=== PATIENT | male | born 1960 | race African-American/Black ===

== ENCOUNTER 2017-05-15 20:38 | Emergency (ER) | payer OTHER ==
[~2017-05-15] VITALS: Ht 193 cm; Wt 107.0 kg
[~2017-05-15 20:38] MED LIST: AMLO5TAB96 PO; EZET10 PO; GABA300C3 PO; NAPR220T95 PO; ROBA750T3 PO; TAB-TAB PO
[2017-05-15 20:41] VITALS: BP 130/70; PULSE 72; RESP 16; TEMP 98.3; O2SAT 97
--- NOTE | 2017-05-15 20:45 | PD ---
Physical Exam Date Seen by Provider: May 15, 2017 Time Seen by Provider: 20:44 Narrative 56 yo male here for evaluation of right lower leg bite. Unknown etiology. Noticed after he took his shoes and socks off today. Pain is 8/10. No history of this. No other complains today. Vitals are stable. Awaiting bed placement. Data Data Last Documented VS Vital Signs Date Time Temp Pulse Resp B/P Pulse Ox O2 Delivery O2 Flow Rate FiO2 05/15/17 20:41 98.3 72 16 130/70 97 Room Air [facility] Medical Record Reviewed: Yes Supervised Visit with LESLIE: No Jeremías Pickett May 15, 2017 20:45
[2017-05-15] MEDS ORDERED: TRIA.1%T TOPICAL (22:20)
--- NOTE | 2017-05-15 22:25 | PD ---
HPI Chief Complaint: Bite or Sting Time Seen by Provider: 22:21 Travel History International Travel<30 days: No Contact w/Intl Traveler<30days: No Traveled to known affect area: No History of Present Illness HPI 56-year-old black male presents emergency department for evaluation of a insect bite. He states that he is working out in the yard earlier today. He states that he felt something bite him underneath his boot. He states that after an gotten home and taking his shoes and socks off he had noted a tender red area underneath his sock. She did not see the organism. Does complain of tenderness and mild pruritus. He is not taking anything for this yet. He has not had any secondary symptoms of other rashes, fever, chills, shortness of breath or glossal edema. PFSH Past Medical History Narrative Medical Chronic neck and back pain, hypercholesterolemia Arthritis: Yes Blood Disorders: No Anxiety: No Depression: No Cancer: No Cardiovascular Problems: No High Cholesterol: Yes Cerebrovascular Accident: No Diabetes: No Diminished Hearing: No Endocrine: No Genitourinary: No Headaches: No Hepatitis: Yes (25 YEARS AGO) Hiatal Hernia: No Hypertension: Yes Immune Disorder: No Musculoskeletal: Yes (LUMBAR PAIN RADIATING INTO LEGS) Neurologic: No Psychiatric: No Reproductive: No Respiratory: No Migraines: No Seizures: No Thyroid Disease: No Tetanus Vaccination: < 5 Years Past Surgical History Narrative Surgical Cervical discectomy and fusion Abdominal Surgery: No AICD: No Body Medical Devices: CERVICAL PLATE AND SCREWS Cardiac Surgery: No Ear Surgery: No Eye Surgery: No Genitourinary Surgery: No Joint Replacement: No Oral Surgery: No Pacemaker: No Thoracic Surgery: No Social History Alcohol Use: No Tobacco Use: No Substance Use: No Allergies-Medications (Allergen,Severity, Reaction): Coded Allergies: Tamiflu (Unverified Allergy, Severe, HIVES, 08/08/15) *MDRO Multi-Drug Resistant Organism (Unverified Adverse Reaction, Unknown , 08/05/15) 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 Reported Meds & Prescriptions Reported Meds & Active Scripts Active Triamcinolone Topical (Triamcinolone Acetonide) 0.1% Cream 1 Applic TOPICAL BID Robaxin-750 (Methocarbamol) 750 Mg Tab 750 Mg PO QID FOR PAIN Norvasc (Amlodipine Besylate) 5 Mg Tab 5 Mg PO DAILY Reported Zetia (Ezetimibe) 10 Mg Tab 10 Mg PO DAILY Multivitamin (Multivitamins) 1 Tab Tab 1 Tab PO DAILY Gabapentin 300 Mg Cap 300 Mg PO HS Aleve (Naproxen Sodium) 220 Mg Tab 4-6 Tab PO BID PRN Review of Systems Except as stated in HPI: all other systems reviewed are Neg Physical Exam Narrative GENERAL: This is a well-nourished, well-developed patient, in no apparent distress. SKIN: There is a 3 x 3 cm area of mild erythema and induration to the lower medial right pretibial area. There is no fluctuance or pointing. No lymphangitic streaking. Mildly tender. Warm and dry. HEAD: Atraumatic. Normocephalic. EYES: PERRL, EOMI, no discharge or injection. No scleral icterus. EARS: Clear NOSE: Nasal turbinates appear normal. THROAT: Mucosa pink and moist. Airway patent. NECK: Trachea midline. supple, moves head freely. LUNGS: Clear to auscultation. CV: Regular in rhythm. ABDOMEN: Soft nontender. EXT: No clubbing cyanosis or edema. Data Data Last Documented VS Vital Signs Date Time Temp Pulse Resp B/P Pulse Ox O2 Delivery O2 Flow Rate FiO2 05/15/17 20:41 98.3 72 16 130/70 97 Room Air Orders Diphenhydramine (Benadryl) (05/15/17 22:30) Prednisone (Deltasone) (05/15/17 22:30) MDM Medical Decision Making Medical Screen Exam Complete: Yes Emergency Medical Condition: Yes Medical Record Reviewed: Yes Differential Diagnosis MDM: High Differential diagnoses: Abscess, folliculitis, cellulitis, lymphangitis, abrasion, contact dermatitis, insect bite Narrative Course Patient has an insect bite local reaction. Patient's given prednisone 60 mg and Benadryl 50 g by mouth. I see no systemic symptoms from the bite. This will be treated symptomatically and locally with topical steroids and Benadryl. Diagnosis Primary Impression: Insect bite of ankle with local reaction Qualified Code: S90.561A - Insect bite of ankle with local reaction, right, initial encounter Patient Instructions: General Instructions Additional Instructions: Rest. Elevation. Ice pack tonight. 50 no evidence of Benadryl every 4-6 hours. Triamcinolone cream. Follow-up with your doctor in the next 3-4 days. Return to the ER for emergencies. Scripts Triamcinolone Topical 0.1% Cream1 Applic TOPICAL BID #30 GM Prov:Christian Tijerina MD 05/15/17 Disposition: 01 DISCHARGE HOME Condition: Stable Juliocesar Ivory May 15, 2017 22:25
[2017-05-15] MEDS ORDERED: predniSONE 20 MG TAB PO ONE (22:30)
[2017-05-15] MEDS ORDERED: diphenhydrAMINE HCL 50 MG CAP PO ONE (22:30)
== END 2017-05-15 22:40 | disposition home or self-care (01) ==
LOC: NEPK 20:38
DX: S90.561A Insect bite (nonvenomous), right ankle, initial encounter (principal); I10 Essential (primary) hypertension; E78.00 Pure hypercholesterolemia, unspecified; M19.90 Unspecified osteoarthritis, unspecified site; Z79.899 Other long term (current) drug therapy; W57.XXXA Bitten or stung by nonvenomous insect and other nonvenomous arthropods, initial encounter
CPT/HCPCS: 99283; J7512; Q0163

== ENCOUNTER 2017-11-27 20:43 | Emergency (ER) | payer OTHER ==
[~2017-11-27] VITALS: Ht 193 cm; Wt 108.2 kg
[~2017-11-27 20:43] MED LIST changes: +TRIA.1%T TOPICAL
[2017-11-27 20:46] VITALS: BP 130/85; PULSE 78; RESP 16; TEMP 98.3; O2SAT 99
--- NOTE | 2017-11-27 21:58 | RADRPT ---
EXAM DATE/TIME: 11/27/2017 21:17 [place] COMPARISON: No previous studies available for comparison. INDICATIONS : Right knee pain, swelling for 2 days with no known injury MEDICAL HISTORY : None. SURGICAL HISTORY : None. ENCOUNTER: Initial ACUITY: 2 days PAIN SCORE: 7/10 LOCATION: Right anterior knee FINDINGS: Four view examination of the right knee demonstrates no evidence of fracture or dislocation. Bony mi neralization is normal. The articular surfaces are intact. The prepatellar soft tissues are swollen . CONCLUSION: 1. No acute bony abnormality. Prepatellar soft tissue swelling or bursitis. Juliocesar Herndon MD on November 27, 2017 at 21:54 Board Certified Radiologist. This report was verified electronically.
[2017-11-27] MEDS ORDERED: LIDOCAINE 1%/EPINEPHrine 1:100,000 SOLN 20 ML VIAL INFIL ONE (22:15)
[2017-11-27] MEDS ORDERED: LIDOCAINE HCL 1% 20 ML VIAL ONE (22:21)
--- NOTE | 2017-11-27 22:38 | PD ---
HPI Chief Complaint: Musculoskeletal Complaint Time Seen by Provider: 21:59 Travel History International Travel<30 days: No Contact w/Intl Traveler<30days: No Traveled to known affect area: No History of Present Illness HPI Patient comes emergency Department complaining of right knee swelling that began 2 days ago. Patient states he awoke with the swelling. Patient reports mild discomfort with this. Reports feeling warmth with it. Patient reports it has become progressively worse. Denies any fevers, history of IV drug use, or previous episodes like this. Denies anything making it better. Walking and trying to nail makes it worse. Denies any radiation of the pain. PFSH Past Medical History Arthritis: Yes Blood Disorders: No Anxiety: No Depression: No Cancer: No Cardiovascular Problems: No High Cholesterol: Yes Cerebrovascular Accident: No Diabetes: No Diminished Hearing: No Endocrine: No Gastrointestinal Disorders: No Genitourinary: No Headaches: No Hepatitis: Yes (25 YEARS AGO) Hiatal Hernia: No Hypertension: Yes Immune Disorder: No Implanted Vascular Access Dvce: Yes Musculoskeletal: Yes (LUMBAR PAIN RADIATING INTO LEGS) Neurologic: No Psychiatric: No Reproductive: No Respiratory: No Migraines: No Seizures: No Thyroid Disease: No Past Surgical History Abdominal Surgery: No AICD: No Body Medical Devices: CERVICAL PLATE AND SCREWS Cardiac Surgery: No Ear Surgery: No Eye Surgery: No Genitourinary Surgery: No Joint Replacement: No Neurologic Surgery: No Oral Surgery: No Pacemaker: No Thoracic Surgery: No Other Surgery: Yes (PLATE IN NECK BY DR. 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 Reported Meds & Prescriptions Reported Meds & Active Scripts Active Triamcinolone Topical (Triamcinolone Acetonide) 0.1% Cream 1 Applic TOPICAL BID Robaxin-750 (Methocarbamol) 750 Mg Tab 750 Mg PO QID FOR PAIN Norvasc (Amlodipine Besylate) 5 Mg Tab 5 Mg PO DAILY Reported Zetia (Ezetimibe) 10 Mg Tab 10 Mg PO DAILY Multivitamin (Multivitamins) 1 Tab Tab 1 Tab PO DAILY Gabapentin 300 Mg Cap 300 Mg PO HS Aleve (Naproxen Sodium) 220 Mg Tab 4-6 Tab PO BID PRN Review of Systems Except as stated in HPI: all other systems reviewed are Neg Physical Exam Narrative GENERAL: Well-developed, well nourished, in no acute distress, and non-ill appearing. SKIN: Focused skin assessment warm and dry. HEAD: Atraumatic. Normocephalic. EYES: Pupils equal and round. EOMI. No scleral icterus. No injection or drainage. ENT: No nasal bleeding or discharge. Mucous membranes pink and moist. NECK: Trachea midline. Supple. No nuclear rigidity. RESPIRATORY: No accessory muscle use. No respiratory distress. MUSCULOSKELETAL: No obvious deformities. No clubbing. No cyanosis. No edema. Full range of motion. Swelling noted over the right prepatellar bursa is tender to palpation. It is mildly febrile. There is no drainage or crepitus. NEUROLOGICAL: Awake and alert. No obvious cranial nerve deficits. Motor grossly within normal limits. Normal speech. PSYCHIATRIC: Appropriate mood and affect; insight and judgment normal. Data Data Last Documented VS Vital Signs Date Time Temp Pulse Resp B/P (MAP) Pulse Ox O2 Delivery O2 Flow Rate FiO2 11/27/17 20:46 98.3 78 16 130/85 (100) 99 Room Air Orders Orders Knee, Complete (4vws) (11/27/17 ) Lidocai-Epi 1%-1:100,000 Inj (Xylocaine- (11/27/17 22:15) Fluid Culture And Gram Stain (11/27/17 22:16) Synovial Fl Cell Count + Diff (11/27/17 22:16) Lidocaine 1% Inj (Xylocaine 1% Inj) (11/27/17 22:21) MDM Medical Decision Making Medical Screen Exam Complete: Yes Emergency Medical Condition: Yes Differential Diagnosis Bursitis, gout, pseudogout, septic arthritis, abscess, cellulitis, fracture Narrative Course Patient was seen and examined. Knee x-ray was reviewed. Discussed patient with Dr. Dumont, who saw and evaluated the patient is in agreement with plan of care. Right knee was tapped. Please see procedure note. Patient was signed out to Dr. Dumont at the end of my shift pending labs. Please see her her documentation for final diagnosis and disposition. Procedures Procedure Narrative Verbal consent was obtained. Area was cleaned and prepped using Betadine. Sterile technique was performed. The area was anesthetized using lidocaine without epi 2 mL was injected. 18-gauge needle was inserted ventricular to the knee into the prepatellar bursa. 5 cc of fluid was drained. Sterile dressing was applied. Patient tolerated procedure well. There is no complications. Elliott Rubin Nov 27, 2017 22:38
[2017-11-28] MEDS ORDERED: NABU1TAB37 PO (00:25)
--- NOTE | 2017-11-28 00:28 | PD ---
Physical Exam Date Seen by Provider: Nov 28, 2017 Narrative This patient was seen along with CARLOS EDUARDO Mcdonald with an apparent right prepatellar bursitis. Sai drain the bursitis for the purpose of obtaining samples for Gram stain, culture and cell count. We have been waiting for the results of this for a couple hours now. The patient has grown in patient and has decided to leave AMA. The risks of leaving AMA were explained to the patient. Data Data Last Documented VS Vital Signs Date Time Temp Pulse Resp B/P (MAP) Pulse Ox O2 Delivery O2 Flow Rate FiO2 11/27/17 20:46 98.3 78 16 130/85 (100) 99 Room Air Orders Orders Knee, Complete (4vws) (11/27/17 ) Lidocai-Epi 1%-1:100,000 Inj (Xylocaine- (11/27/17 22:15) Fluid Culture And Gram Stain (11/27/17 22:16) Synovial Fl Cell Count + Diff (11/27/17 22:16) Lidocaine 1% Inj (Xylocaine 1% Inj) (11/27/17 22:21) Labs Laboratory Tests Test 11/27/17 22:30 MDM Supervised Visit with LESLIE: Yes Narrative Course I, Dr. Dumont, have reviewed the advance practice practitioner's documentation and am in agreement, met with the patient face to face, made the diagnosis, and the medical decision making was done by me. *My assessment and Findings: He has an inflamed-appearing, boggy right prepatellar bursa Please see Sai Rubin PA-C's note for results of laboratory and radiographic evaluation, ED course, final diagnosis and disposition Diagnosis Primary Impression: Bursitis Qualified Codes: M70.41 - Prepatellar bursitis, right knee Patient Instructions: General Instructions Departure Forms: Tests/Procedures Scripts Nabumetone (Nabumetone) 500 Mg Tab 500 MG PO BID for Pain-Inflammation, #60 TAB 0 Refills Prov: Cira Dumont MD 11/28/17 Disposition: 07 AGAINST MEDICAL ADVICE Condition: Stable Cira Dumont MD Nov 28, 2017 00:28
[2017-11-28 00:41] LABS: WBC, SYNOVIAL FLUID 7135 /MM3 (0-200)
== END 2017-11-28 00:30 | disposition left against medical advice (07) ==
LOC: NEPC 20:43
DX: M70.41 Prepatellar bursitis, right knee (principal); M19.90 Unspecified osteoarthritis, unspecified site; E78.00 Pure hypercholesterolemia, unspecified; I10 Essential (primary) hypertension; Z79.899 Other long term (current) drug therapy
CPT/HCPCS: 20610; 73564; 87070; 87205; 89051